=== PATIENT | male | born 1960 | race American Indian/Alaskan Native ===

== ENCOUNTER 2018-03-26 10:27 | Emergency (ER) | payer MEDICARE, OTHER ==
[2018-03-26 10:51] VITALS: BP 135/90; PULSE 66; RESP 20; TEMP 98.1; O2SAT 96
[2018-03-26] MEDS ORDERED: Bacitracin 500 Units/gm Oint Foilpak UD TOP ONE (12:15)
--- NOTE | 2018-03-26 12:17 | C.PDOC ---
History Of Present Illness 57 y/o male presents to the ER complaining of right thumb pain and bruising present for the past 4 days. Patient states that his finger got caught in a van door 4 days ago. Patient denies other injuries, sensory changes, bleeding, discharge. . Time Seen by Provider: 03/26/18 11:03 Chief Complaint (Nursing): Finger,Hand,&Wrist History Per: Patient History/Exam Limitations: no limitations Onset/Duration Of Symptoms: Days Current Symptoms Are (Timing): Still Present Quality: "Pain" Severity: Mild Past Medical History Reviewed: Historical Data, Nursing Documentation, Vital Signs Vital Signs: Last Vital Signs Temp 98.1 F 03/26/18 10:50 Pulse 66 03/26/18 10:50 Resp 20 03/26/18 10:50 BP 135/90 03/26/18 10:50 Pulse Ox 96 03/26/18 15:13 - Medical History PMH: No Chronic Diseases Surgical History: No Surg Hx Family History: States: No Known Family Hx - Social History Hx Alcohol Use: No Hx Substance Use: No - Immunization History Hx Tetanus Toxoid Vaccination: Yes Hx Influenza Vaccination: No Hx Pneumococcal Vaccination: Yes Review Of Systems Constitutional: Negative for: Fever, Chills Musculoskeletal: Positive for: Hand Pain (right thumb pain) Skin: Negative for: Rash Neurological: Negative for: Numbness Physical Exam - Physical Exam Appears: Well, Non-toxic, No Acute Distress Skin: Normal Color, Warm, Dry, No Rash Head: Normacephalic Eye(s): bilateral: Normal Inspection Oral Mucosa: Moist Neck: Supple Cardiovascular: Rhythm Regular Respiratory: Normal Breath Sounds, No Rales, No Rhonchi, No Wheezing Extremity: Normal ROM (right thumb MCP and IP joints), Tenderness ( tenderness to palpation at the nailbed of right thumb), Capillary Refill (< 2 seconds all digits ), No Deformity (right thumb), Other (subungual hematoma to the nailbed of right thumb) Pulses: Left Radial: Normal, Right Radial: Normal Neurological/Psych: Oriented x3, Normal Sensation ED Course And Treatment O2 Sat by Pulse Oximetry: 96 (RA) Pulse Ox Interpretation: Normal - Other Rad X-Ray- Righ Thumb X-Ray: Interpreted by Me, Viewed By Me Interpretation: no fractures/dislocation, no foreign bodies Progress Note: X-Ray of right thumb ordered and reviewed. Nail trephination performed by me with cautery, (+) successful decompression of subungual hematoma. Patient tolerated well. He was instructed to follow up with PMD in 1 -2 days, and understands he should return to ED if symptoms worsen/return. Reassessment Condition: Improved Disposition Counseled Patient/Family Regarding: Diagnosis, Need For Followup - Disposition Referrals: Alek Parada MD [Staff Provider] - Disposition: HOME/ ROUTINE Disposition Time: 12:25 Condition: STABLE Additional Instructions: FOLLOW UP WITH YOUR DOCTOR IN 1-2 DAYS USE IBUPROFEN OR TYLENOL NEEDED FOR PAIN RETURN TO ER IF SYMPTOMS WORSEN Forms: General Discharge Instructions, [facility] ([employer]) Print Language: YAKUT - POA Present On Arrival: Falls Or Trauma - Clinical Impression Clinical Impression: Subungual hematoma - Scribe Statement The provider has reviewed the documentation as recorded by the Melissaibe Homer [place] Provider Attestation: All medical record entries made by the Melissaibe were at my direction and personally dictated by me. I have reviewed the chart and agree that the record accurately reflects my personal performance of the history, physical exam, medical decision making, and the department course for this patient. I have also personally directed, reviewed, and agree with the discharge instructions and disposition.
--- NOTE | 2018-03-26 12:19 | RAD ---
PROCEDURE: Right Thumb radiographs. HISTORY: THUMB INJURY COMPARISON: None. TECHNIQUE: AP radiograph of the right hand, as well as spot oblique and lateral images of thumb were obtained. FINDINGS: RIGHT THUMB: The current study reveals a small elliptical shaped smooth surfaced corticated bony density within the palmar soft tissues adjacent to the DIP joint right thumb that could represent old posttraumatic mineralization or old unfused avulsion fracture. No evidence to suggest acute disc placed fracture nor dislocation. The osseous structures otherwise intact. Joint spaces preserved. There does appear to be mild soft tissue swelling right thumb. JOINTS: As above SOFT TISSUES: As above OTHER FINDINGS: No radiopaque foreign bodies IMPRESSION: There is a small elliptical shaped smooth surfaced corticated bony density within the palmar soft tissues adjacent to the DIP joint right thumb that could represent old posttraumatic mineralization or old unfused avulsion fracture. No evidence to suggest acute disc placed fracture nor dislocation. The osseous structures otherwise intact. Joint spaces preserved. . . Mild soft tissue swelling right thumb.
[2018-03-26] MEDS ORDERED: Bacitracin 500 Units/gm Oint Foilpak UD ONE (12:25)
== END 2018-03-26 12:27 | disposition home or self-care (01) ==
LOC: C.ER 10:27
DX: S60.111A Contusion of right thumb with damage to nail, initial encounter (principal); W23.0XXA Caught, crushed, jammed, or pinched between moving objects, initial encounter